=== PATIENT | female | born 1965 | race Caucasian/White ===

== ENCOUNTER → 2018-05-09 | Outpatient (CLI) | payer BC ==
--- NOTE | 2018-05-09 11:52 | BD ---
EXAMINATION TYPE: Axial Bone Density DATE OF EXAM: 05/09/2018 COMPARISON: Prior DEXA bone scan from 2010. CLINICAL HISTORY: Postmenopausal female Height: 5 FT 21/2 IN Weight: 222 FRAX RISK QUESTIONS: Glucocorticoids (More than 3mos): DURING CHEMO TX SHE TOOK FROM DECEMBER - APRIL ON TREATMENT DAYS (Ex: prednisone, prednisolone, methylprednisolone, dexamethasone, and hydrocortisone). Secondary Osteoporosis: 3. Menopause before 45: TOTAL HYST AGE 34 RISK FACTORS HISTORY OF: Active: YES Postmenopausal woman: SURG RADHA AGE 34 MEDICATIONS: Additional Medications: BLOOD PRESSURE MEDS, SINGULAIR , INHALER NEEDED Additional History: OVARIAN CANCER AGE 34 CHEMO EXAM MEASUREMENTS: Bone mineral densitometry was performed using the [employer]. Bone mineral density as measured about the Lumbar spine is: ----- L1-L4(G/cm2): 1.119 T Score Values are as follows: ----- L2: -0.5 ----- L3: -0.1 ----- L4: -0.8 ----- L1-L4: -0.5 Bone mineral density has: INCREASED 0.4% since study of: 2010 Bone mineral density about the R hip (g/cm2): 0.992 Bone mineral density about the L hip (g/cm2): 0.974 T Score values are as follows: -----R Neck: -0.3 -----L Neck: -0.5 -----R Total: 0.1 -----L Total: 0.2 Bone mineral density has: INCREASED 2.6 % since study of: 2010 IMPRESSION: Normal (Values between +1 and -1 indicate normal bone mass) range on current study remains present. Consider repeating this study in 5 years or sooner if there is some new clinical indication. NOTE: T-SCORE=SD OF THE YOUNG ADULT MEAN.
--- NOTE | 2018-05-09 12:57 | MM ---
Reason for exam: screening (asymptomatic). Last mammogram was performed 1 year ago. History: Patient is postmenopausal and has history of ovarian cancer at age 34. Physical Findings: A clinical breast exam by your physician is recommended on an annual basis and results should be correlated with mammographic findings. MG Screening Mammo w CAD Bilateral CC and MLO view(s) were taken. Prior study comparison: May 01, 2017, bilateral MG screening mammo w CAD. March 21, 2016, bilateral MG screening mammo w CAD. There are scattered fibroglandular densities. There is no discrete abnormality. ASSESSMENT: Negative, BI-RAD 1 RECOMMENDATION: Routine screening mammogram of both breasts in 1 year.
== END | disposition home or self-care (01) ==
LOC: RADMAMWWP 09:53
PROVIDERS: ATTEND Internal Medicine Hematology & Oncology
DX: Z12.31 Encounter for screening mammogram for malignant neoplasm of breast (principal); N95.1 Menopausal and female climacteric states
CPT/HCPCS: 77067; 77080

== ENCOUNTER → 2019-06-17 | Outpatient (CLI) | payer BC ==
--- NOTE | 2019-06-17 14:02 | MM ---
Reason for exam: screening (asymptomatic). Last mammogram was performed 1 year and 1 month ago. History: Patient is postmenopausal and has history of ovarian cancer at age 34. Physical Findings: A clinical breast exam by your physician is recommended on an annual basis and results should be correlated with mammographic findings. MG Screening Mammo w CAD Bilateral CC and MLO view(s) were taken. Prior study comparison: May 09, 2018, bilateral MG screening mammo w CAD. May 01, 2017, bilateral MG screening mammo w CAD. There are scattered fibroglandular densities. No suspicious abnormality. No significant changes when compared with prior studies. ASSESSMENT: Negative, BI-RAD 1 RECOMMENDATION: Routine screening mammogram of both breasts in 1 year.
== END | disposition home or self-care (01) ==
LOC: RADMAMWWP 10:43
PROVIDERS: ATTEND Internal Medicine Hematology & Oncology
DX: Z12.31 Encounter for screening mammogram for malignant neoplasm of breast (principal)
CPT/HCPCS: 77067